=== PATIENT | male | born 1955 | race Caucasian/White ===

== ENCOUNTER → 2023-05-30 | Outpatient (REF) | payer MEDICARE | LOC: M LAB REF 17:18 | PROVIDERS: ATTEND Otolaryngology | DX: R59.0 Localized enlarged lymph nodes (principal) ==

== ENCOUNTER 2023-06-27 10:12 | Day surgery (SDC) | payer MEDICARE ==
[~2023-06-27] VITALS: Ht 177.8 cm; Wt 125.5 kg
[~2023-06-27 10:12] MED LIST: ATOR40TA75; FENO145T7; GLIP10TA6; JARD1TAB3; LISI20TA35; METF-838
[2023-06-27] MEDS ORDERED: THERTAB52 PO (10:43)
[2023-06-27] MEDS ORDERED: NOVOINJ14 SC (10:43)
[2023-06-27] MEDS ORDERED: CO Q10CA PO (10:43)
[2023-06-27] MEDS ORDERED: OMEG10002 PO (10:43)
[2023-06-27] MEDS ORDERED: DEXTROSE 50% 50ML SYRINGE IV PRN (11:15)
[2023-06-27] MEDS ORDERED: GLUCAGON INJ 1MG VIAL SC PRN (11:15)
[2023-06-27] MEDS ORDERED: GLUCOSE 4GM CHEW TABLET PO PRN (11:15)
[2023-06-27] MEDS: LR 1,000 ML IV SCH (11:24)
[2023-06-27] MEDS: INSULIN LISPRO (NovoLOG) PER UNIT SC PRN ×2 (11:27→15:41)
[2023-06-27] MEDS ORDERED: fentaNYL 100 MCG/2 ML INJECTION As Ordered ONE (12:00)
[2023-06-27] MEDS ORDERED: MIDAZOLAM INJ 2MG/2ML VIAL As Ordered ONE (12:00)
[2023-06-27] MEDS ORDERED: ONDANSETRON 4MG 2ML VIAL As Ordered ONE (12:01)
[2023-06-27] MEDS ORDERED: SUGAMMADEX SODIUM 500 MG/5 ML VIAL (BRIDION) As Ordered ONE (12:01)
[2023-06-27] MEDS ORDERED: LIDOCAINE 2% 100MG/5ML SDV (FOR ANES.) As Ordered ONE (12:01)
[2023-06-27] MEDS ORDERED: ROCURONIUM BROMIDE 50MG/5ML VIAL As Ordered ONE (12:01)
[2023-06-27] MEDS ORDERED: propofoL 200 MG/20 ML VIAL As Ordered ONE (12:04)
[2023-06-27] MEDS ORDERED: PHENYLEPHRINE 10MG/ML 1ML VIAL As Ordered ONE (13:33)
[2023-06-27] MEDS ORDERED: VASOPRESSIN INJ 20UNITS/ML 1ML VIAL As Ordered ONE (13:36)
[2023-06-27] MEDS ORDERED: PHENYLephrine 500MCG 5ML (100MCG/ML) SYRINGE As Ordered ONE (13:46)
[2023-06-27] MEDS ORDERED: HYDROmorphone HCL 2MG/ML 1ML VIAL As Ordered ONE (13:51)
[2023-06-27] MEDS: LIDOCAINE W/EPINEPHRINE 1% 20ML VIAL As Ordered ONE (14:38)
[2023-06-27] MEDS ORDERED: BACITRACIN OINTMENT 30GM TUBE As Ordered ONE (14:39)
[2023-06-27] MEDS ORDERED: fentaNYL 100 MCG/2 ML INJECTION IV PRN ×2 (14:50→15:20)
[2023-06-27] MEDS ORDERED: ONDANSETRON 4MG 2ML VIAL IV PRN (14:50)
[2023-06-27] MEDS: oxyCODONE 5MG TAB PO PRN (15:43)
[2023-06-27 17:05] VITALS: BP 111/64; TEMP 97.1; O2SAT 94
== END 2023-06-27 17:12 | disposition home or self-care (01) ==
LOC: M SDC 10:12
PROVIDERS: ATTEND Otolaryngology
DX: C91.10 Chronic lymphocytic leukemia of B-cell type not having achieved remission (principal); E11.9 Type 2 diabetes mellitus without complications; I10 Essential (primary) hypertension; E78.00 Pure hypercholesterolemia, unspecified; Z79.84 Long term (current) use of oral hypoglycemic drugs; Z79.899 Other long term (current) drug therapy; M10.9 Gout, unspecified; Z88.0 Allergy status to penicillin; Z90.49 Acquired absence of other specified parts of digestive tract; Z87.19 Personal history of other diseases of the digestive system
CPT/HCPCS: 38510; 88305; J1100; J1170; J1815; J2250; J2371; J2405; J2598; J3010